=== PATIENT | female | born 1980 | race Two or more races ===

== ENCOUNTER 2018-06-27 09:41 | Outpatient (CLI) | payer OTHER | END 2018-06-27 09:42 | disposition home or self-care (01) | LOC: SC 09:41 | PROVIDERS: ATTEND Internal Medicine Pulmonary Disease | DX: R06.81 Apnea, not elsewhere classified (principal); G47.10 Hypersomnia, unspecified; G47.8 Other sleep disorders; R06.83 Snoring | CPT/HCPCS: 99203; 99212 ==

== ENCOUNTER 2018-07-04 20:36 | Outpatient (CLI) | payer OTHER | END 2018-07-04 20:37 | disposition home or self-care (01) | LOC: SC 20:36 | PROVIDERS: ATTEND Internal Medicine Pulmonary Disease | DX: Z53.9 Procedure and treatment not carried out, unspecified reason (principal) ==

== ENCOUNTER 2018-07-06 10:34 | Outpatient (CLI) | payer OTHER | END 2018-07-06 10:35 | disposition home or self-care (01) | LOC: SC 10:34 | PROVIDERS: ATTEND Internal Medicine Pulmonary Disease | DX: G47.61 Periodic limb movement disorder (principal) | CPT/HCPCS: 95810 ==

== ENCOUNTER 2018-08-24 12:47 | Outpatient (CLI) | payer OTHER | END 2018-08-24 12:48 | disposition home or self-care (01) | LOC: SC 12:47 | PROVIDERS: ATTEND Nurse Practitioner Family | DX: G47.61 Periodic limb movement disorder (principal); R53.83 Other fatigue; I95.9 Hypotension, unspecified; R06.83 Snoring | CPT/HCPCS: 99212; 99214 ==

== ENCOUNTER 2022-07-29 09:15 | Outpatient (CLI) | payer OTHER | END 2022-07-29 09:30 | disposition home or self-care (01) | LOC: LAB.N 09:15 | PROVIDERS: ATTEND Nurse Practitioner | DX: N39.0 Urinary tract infection, site not specified (principal) | CPT/HCPCS: 87086 ==

== ENCOUNTER 2023-05-18 08:00 | Outpatient (CLI) | payer OTHER ==
[2023-05-18 22:26] LABS: BACTERIAL VAGINOSIS DNA NEGATIVE (NEGATIVE); CANDIDA GLABRATA DNA NEGATIVE (NEGATIVE); CANDIDA GROUP DNA NEGATIVE (NEGATIVE); CANDIDA KRUSEI DNA NEGATIVE (NEGATIVE); TRICHOMONAS VAGINALIS DNA NEGATIVE (NEGATIVE)
== END 2023-05-18 23:59 | disposition home or self-care (01) ==
LOC: LAB.WC 08:00
PROVIDERS: ATTEND Nurse Practitioner
DX: N89.8 Other specified noninflammatory disorders of vagina (principal); R63.5 Abnormal weight gain
CPT/HCPCS: 36415; 81514; 81599; 84436; 84443; 84480; 87109

== ENCOUNTER 2023-05-18 15:45 | Outpatient (CLI) | payer OTHER ==
[2023-05-18 16:41] LABS: THYROID STIMULATING HORMONE 2.63 uIU/mL (0.34-5.60)
== END 2023-05-18 15:46 | disposition home or self-care (01) ==
LOC: LAB 15:45 → MERGE 15:45 → LAB 15:46
PROVIDERS: ATTEND Nurse Practitioner
DX: R63.5 Abnormal weight gain (principal)
CPT/HCPCS: 36415; 84436; 84443; 84480

== ENCOUNTER 2023-06-25 14:54 | Outpatient (CLI) | payer OTHER ==
--- NOTE | 2023-07-05 09:23 | Mammography Report ---
BILATERAL DIGITAL SCREENING MAMMOGRAM 3D/2D: 06/25/2023 CLINICAL: Routine screening. No prior exams were available for comparison. Both breasts are heterogeneously dense, which may obscure small masses (category c / 51-75% glandular tissue). There is a possible focal asymmetry in the left breast at 1 o'clock middle depth. No other significant masses, calcifications, or other findings are seen in either breast. IMPRESSION: INCOMPLETE: NEEDS ADDITIONAL IMAGING EVALUATION The possible focal asymmetry in the left breast resembles fibroglandular tissue and is indeterminate. Additional views with possible ultrasound are recommended. Based on the Tyrer Cuzick model (a risk assessment model) the patient's lifetime risk is 15.3% and he r 10 year risk is 2.1%. According to the ACR, ACS, and NCCN guidelines, an annual breast MRI exam timi ng with mammogram is recommended if the patients lifetime risk is 20% or greater. This exam was interpreted at Station ID: [id number]. NOTE: For mammograms, a report in lay terms will be sent to the patient. Approximately 15% of breast malignancies will not be visualized mammographically. In the management of a palpable breast mass, a negative mammogram must not discourage biopsy of a clinically suspicious lesion. Electronically Signed By: Sharif Booth M.D. aty/:07/03/2023 08:49:48 ACR BI-RADS Category 0: Incomplete 3340F PARENCHYMAL PATTERN: (D) - The breast(s) demonstrate(s) heterogeneously dense fibroglandular parenchy ma. BI-RADS CATEGORY: (0) - 0 Mammo and US [id number] Immediate follow-up LATERALITY: (L)
== END 2023-06-25 14:55 | disposition home or self-care (01) ==
LOC: DI 14:54
PROVIDERS: ATTEND Nurse Practitioner
DX: Z12.31 Encounter for screening mammogram for malignant neoplasm of breast (principal); R92.333 Mammographic heterogeneous density, bilateral breasts; R92.8 Other abnormal and inconclusive findings on diagnostic imaging of breast

== ENCOUNTER 2023-07-22 12:32 | Outpatient (CLI) | payer OTHER ==
--- NOTE | 2023-07-23 09:13 | Ultrasound Report ---
LIMITED ULTRASOUND OF LEFT BREAST: 07/22/2023 CLINICAL: Patient returns today to evaluate a focal asymmetry in the left breast. Comparison is made to exams dated: 07/22/2023 mammogram, 06/25/2023 mammogram - [facility], 10/09/2021 mammogram, and 10/09/2021 ultrasound - [facility]. Color flow and real-time ultrasound of the left breast 1 o'clock region were performed. Rodriguez scale images of the real-time examination were reviewed. There is a benign cluster of 3 mm to 5 mm oval cysts in the left breast superior lateral quadrant mid dle depth. These correlate with mammography findings. IMPRESSION: BENIGN There is no sonographic evidence of malignancy. The cluster of 3 mm to 5 mm oval cysts in the left breast is benign. Return to annual mammogram screening schedule is recommended. This exam was interpreted at Station ID: [id number]. Electronically Signed By: Omero Andre M.D. lc/:07/22/2023 14:06:38 letter sent: No_Letter Ultrasound BI-RADS: 2 Benign BI-RADS CATEGORY: (2) - 2 Mammogram [id number] return to screening LATERALITY: (B)
--- NOTE | 2023-07-23 09:13 | Mammography Report ---
UNILATERAL LEFT DIGITAL DIAGNOSTIC MAMMOGRAM 3D/2D WITH LATEROMEDIAL SPOT COMPRESSION: 07/22/2023 CLINICAL: Patient returns today to evaluate a focal asymmetry in the left breast. Comparison is made to exams dated: 06/25/2023 mammogram - [facility] and 10/09/2021 m ammogram - [facility]. The left breast is heterogeneously dense, which may obscure small masses (category c / 51-75% glandul ar tissue). There is a cluster of oval focal asymmetries in the left breast at 1 o'clock middle depth. No other significant masses or calcifications are seen in the breast. IMPRESSION: INCOMPLETE: NEEDS ADDITIONAL IMAGING EVALUATION The cluster of oval focal asymmetries in the left breast is indeterminate. An ultrasound is recommen ded. Based on the Tyrer Cuzick model (a risk assessment model) the patient's lifetime risk is 15.8% and he r 10 year risk is 2.2%. According to the ACR, ACS, and NCCN guidelines, an annual breast MRI exam timi ng with mammogram is recommended if the patient's lifetime risk is 20% or greater. This exam was interpreted at Station ID: [id number]. NOTE: For mammograms, a report in lay terms will be sent to the patient. Approximately 15% of breast malignancies will not be visualized mammographically. In the management of a palpable breast mass, a negative mammogram must not discourage biopsy of a clinically suspicious lesion. Electronically Signed By: Omero Andre M.D. lc/:07/22/2023 14:03:52 ACR BI-RADS Category 0: Incomplete 3340F PARENCHYMAL PATTERN: (D) - The breast(s) demonstrate(s) heterogeneously dense fibroglandular pariday ma. BI-RADS CATEGORY: (0) - 0 Ultrasound [id number] Immediate follow-up LATERALITY: (B)
== END 2023-07-22 12:33 | disposition home or self-care (01) ==
LOC: DI 12:32
PROVIDERS: ATTEND Nurse Practitioner
DX: N60.12 Diffuse cystic mastopathy of left breast (principal); R92.332 Mammographic heterogeneous density, left breast

== ENCOUNTER 2023-08-31 08:22 | Emergency (ER) | payer OTHER ==
--- NOTE | 2023-08-31 08:57 | ED Physician Documentation ---
PD HPI BACK PAIN - Stated complaint Stated Complaint: LOWER BACK PX - Chief complaint Chief Complaint: Back Pain - History obtained from History obtained from: Patient - History of Present Illness Timing - onset: Yesterday Timing - details: Abrupt onset, Still present, Waxing and waning Location: Lower, Left Quality: Pain, Spasm Worsened by: Movement, Palpation. No: Lifting Contributing factors: Lifting, Twisting Similar symptoms before: Diagnosis (has had periodic back pain episodes the past 6 years after the first of her son, when she had some back pain develop end of and has been infrequently recurring problem.) Review of Systems Constitutional: denies: Fever, Chills GI: denies: Abdominal Pain : denies: Dysuria Skin: denies: Rash, Lesions Neurologic: denies: Focal weakness, Numbness PD PAST MEDICAL HISTORY - Past Medical History Past Medical History: No - Past Surgical History Past Surgical History: Yes /TRAINING ASSOCIATE: section HEENT: Tonsil/Adenoidectomy - Present Medications Home Medications: Ambulatory Orders Medication Instructions Recorded Confirmed Gabapentin [Neurontin] 200 mg PO ONCE PRN 08/31/23 08/31/23 HYDROcod/ACETAM 5/325 [Ogden 5/325] 1 ea PO Q6H PRN #14 tablet 08/31/23 Lidocaine Patch 5% [Lidoderm Patch] 1 patch TOP DAILY PRN #10 patch 08/31/23 Meloxicam [Mobic] 7.5 mg PO BID 10 Days #20 tablet 08/31/23 Sertraline HCl 100 mg PO DAILY 08/31/23 08/31/23 methocarbamoL [Robaxin] 500 mg PO Q6H PRN #30 tablet 08/31/23 - Allergies Allergies/Adverse Reactions: Allergies Allergy/AdvReac Type Severity Reaction Status Date / Time metoclopramide [From Reglan] Allergy Cramps Verified 08/31/23 08:41 codeine AdvReac Emesis Verified 08/31/23 08:40 Sulfa (Sulfonamide AdvReac Emesis Verified 08/31/23 08:40 Antibiotics) - Social History Does the pt smoke?: No Smoking Status: Never smoker Does the pt drink ETOH?: No Does the pt have substance abuse?: No - Immunizations Immunizations are current?: Yes - POLST Patient has POLST: No PD ED PE NORMAL - Vitals Vital signs reviewed: Yes - General General: Alert and oriented X 3, Well developed/nourished, Other (appears guarded for ROM of the low back. Otherwise not in distress. ) - Abdomen Abdomen: Soft, Non tender - Back Back: No CVA TTP, No spinal TTP, Other (tender in the lumbar soft tissue level left side. No focal trigger point per se. No rash nor sores. ) - Derm Derm: Normal color, Warm and dry, No rash - Neuro Neuro: Alert and oriented X 3, No motor deficit, No sensory deficit, Normal speech, Other (normal knee reflexes. ) Results - Vitals Vitals: Oxygen O2 Source Room air PD Medical Decision Making - ED course Complexity details: considered differential (lower muscular back pain without red flags. Can treat with usual combination NSAIDs, muscle relaxants, pain meds and physical modalities. ), d/w patient Departure - Departure Disposition: 01 Home, Self Care Clinical Impression: Acute back pain Condition: Stable Record reviewed to determine appropriate education?: Yes Instructions: ED Spasm Back No Trauma Follow-Up: [facility] [Provider Group] Prescriptions: Lidocaine Patch 5% [Lidoderm Patch] 1 patch TOP DAILY PRN #10 patch PRN Reason: pain Meloxicam [Mobic] 7.5 mg PO BID 10 Days #20 tablet HYDROcod/ACETAM 5/325 [Ogden 5/325] 1 ea PO Q6H PRN #14 tablet PRN Reason: Pain methocarbamoL [Robaxin] 500 mg PO Q6H PRN #30 tablet PRN Reason: Spasms Comments: You can try heat and/or ice and see which 1 makes it feel better. This will depend on how much is spasm versus inflammation and sometimes alternating the tube can be useful as well. Physical modalities such as massage, stretching chiropractic can be useful. Continue your physical therapy. We can use a combination of some longer acting in a inflammatory similar to ibuprofen but he would only need to take it twice a day for the next week or so. Still take it with food. Robaxin muscle relaxant to use for spasm and stiffness. You can try topically a lidocaine patch over the area as well. I find these useful at times as an adjunct. Add Tylenol 500 to 650 mg 4 times daily for pain also if needed. Activity as tolerated. Add hydrocodone/acetaminophen every 6-8 hours if needed for worse pain in the short-term. I sent prescriptions to [facility] pharmacy in [place]. Follow-up with your primary care or return to the ER if not improving well over the next several days or more frequent recurrent episodes. If you are having more episodes and to have been through physical therapy, your primary care may consider imaging to see if there is more to it aside from your scoliosis. It sounds like your provider is going along the usual preferred and recommended pathways of medication and physical therapy first. I am prescribing a short course of narcotic pain medication for you. These are potentially dangerous and addictive medications that should be used carefully. These medications may constipate you. Take an ryee-dgl-jrnihah stool softener such as docusate twice daily with plenty of water while taking these medications. If you go 24 hours without a bowel movement, take tnls-btr-[id number] MiraLAX, per package instructions. Do not drink or drive while taking these medications. If you received narcotic or sedating medications while in the emergency department do not drive for 24 hours. Store this medication in a safe, secure place and out of reach of children. It is a violation of federal law to give or sell this medication to another person or to use in a manner other than prescribed. The ED will not refill narcotic prescriptions, including prescriptions lost or stolen. You can dispose of unwanted medications at the [facility] office or at several pharmacies such as [facility]. Forms: Activity restrictions Discharge Date/Time: 08/31/23 10:21
[2023-08-31] MEDS: methocarbamoL 500 MG TABLET PO STA (10:06)
[2023-08-31] MEDS: KETOROLAC 30 MG/ML VIAL IM STA (10:07)
[2023-08-31] MEDS: LIDOCAINE PATCH 5% TOP STA (10:10)
[2023-08-31 10:19] VITALS: BP 115/83; O2SAT 99
== END 2023-08-31 10:21 | disposition home or self-care (01) ==
LOC: ED 08:22
DX: M54.50 Low back pain, unspecified (principal)
CPT/HCPCS: 96372; 99283; A9270

== ENCOUNTER 2023-09-22 12:01 | Outpatient (CLI) | payer OTHER ==
--- NOTE | 2023-09-22 16:14 | XRAY Report ---
PROCEDURE: Pelvis 1-2V INDICATIONS: PELVIC PAIN TECHNIQUE: 1 view(s) of the pelvis acquired. COMPARISON: None. FINDINGS: Bones: No fractures or dislocations. No suspicious bony lesions. Soft tissues: Visualized bowel gas pattern is normal. No suspicious soft tissue calcifications. M oderate colonic stool. IMPRESSION: No acute bony abnormality. Reviewed by: Luh Sy MD on 09/22/2023 4:12 PM PDT Approved by: Luh Sy MD on 09/22/2023 4:12 PM PDT Station ID: [id number]
--- NOTE | 2023-09-22 16:15 | XRAY Report ---
PROCEDURE: Lumbar Spine 2-3V INDICATIONS: PELVIC PAIN TECHNIQUE: 3 views of the lumbar spine were acquired. COMPARISON: None. FINDINGS: Bones: 5 gbo-jlo-pgodhkk vertebrae are present. There is trace retrolisthesis of L1 on L2, L2-L3, L 3 on L4. Moderate to severe disc and mild foraminal narrowing are present L5-S1. No vertebral body co mpression fractures. No suspicious bony lesions. Soft tissues: Overlying bowel gas pattern is normal. No suspicious soft tissue calcifications. IMPRESSION: Early degenerative changes most prominent at L5-S1. Reviewed by: Luh Sy MD on 09/22/2023 4:14 PM PDT Approved by: Luh Sy MD on 09/22/2023 4:14 PM PDT Station ID: [id number]
== END 2023-09-22 12:02 | disposition home or self-care (01) ==
LOC: DI 12:01
PROVIDERS: ATTEND Nurse Practitioner
DX: R10.2 Pelvic and perineal pain (principal); M47.817 Spondylosis without myelopathy or radiculopathy, lumbosacral region

== ENCOUNTER 2023-10-11 07:03 | Outpatient (CLI) | payer OTHER ==
[~2023-10-11 07:03] MED LIST: GADOTERATE MEGLUMINE 7.5 MMOL/15 ML VIAL ONE
--- NOTE | 2023-10-11 09:53 | MRI Report ---
PROCEDURE: Lumbar Spine W/WO INDICATIONS: PELVIC PAIN, STRESS INCONTINENCE CONTRAST: Clariscan 13.4ml TECHNIQUE: Noncontrast sagittal T1 spin echo and T2 fast spin echo, sagittal STIR, axial T1 and T2 fast spin ech o through the lumbar spine. In cases with scoliosis, additional coronal T2 fast spin echo may be per formed. After the administration of contrast, sagittal and axial T1 spin echo with fat saturation th rough the lumbar spine. COMPARISON: Lumbar spine plain films dated 09/22/2023. FINDINGS: Image quality: Excellent. Alignment and curvature: There is normal bony alignment. Marrow: Marrow is of normal overall signal. No acute vertebral body compression fractures. No susp icious marrow enhancement. Spinal cord: Conus medullaris terminates at the L1-L2 level. Visualized spinal cord demonstrates no rmal signal, without suspicious enhancement. Paraspinous soft tissues: No paravertebral masses or abnormal enhancement. T12-L1: Normal in appearance. L1-L2: Normal in appearance. L2-L3: Normal in appearance. L3-L4: Early facet hypertrophy. No canal stenosis or foraminal stenosis. L4-L5: Early facet hypertrophy. No canal stenosis or foraminal stenosis. L5-S1: There is a mild broad-based right paracentral disc protrusion with posterior displacement an d a degree of impingement on the right S1 nerve root in the right lateral recess. There is no centra l canal stenosis. There is early facet hypertrophy. There is no significant foraminal stenosis. IMPRESSION: 1. There is early underlying multilevel facet arthropathy. 2. At L5-S1, there is a mild broad-based right paracentral disc protrusion which results in a degree of impingement on the right S1 nerve root in the right lateral recess. Recommend correlation for pres ence or absence of right sciatica. Reviewed by: Armando Emanuel MD on 10/11/2023 9:52 AM PDT Approved by: Armando Emanuel MD on 10/11/2023 9:52 AM PDT Station ID: [id number]
--- NOTE | 2023-10-11 16:29 | MRI Report ---
PROCEDURE: Pelvis W/WO INDICATIONS: PELVIC PAIN, STRESS INCONTINENCE CONTRAST: Clariscan 13.4ml TECHNIQUE: Coronal ultra fast SE, sagittal breath-hold T2 FSE; axial T1 FSE with and without fat saturation thro ugh the pelvis. Optional long- and short-axis uterine nonbreath-hold T2 FSE through the uterus. Sag ittal or axial dynamic ultra fast GE during administration of contrast. Post-contrast axial or coron al ultra fast GE / 2-D spoiled GE with fat saturation from the iliac crests to the symphysis. Option al diffusion weighted imaging and ADC may be performed. COMPARISON: None. FINDINGS: Image quality: Excellent. Uterus: Uterus is normal in size measuring 8.7 cm. Endometrium is normal in thickness measuring 3 m m. Junctional zone is normal in thickness at 12 mm or less. Prior section scar. Adnexa: Both ovaries are normal in size, without suspicious cystic or solid lesions. Urinary system: Bladder wall is normal in thickness. Distal ureters are non distended. Urethra shaneka ears normal in morphology. Nodes and vessels: No pelvic or inguinal adenopathy by size criteria. Iliac vessels are normal in s ize. Bowel and peritoneum: No pathologic free pelvic fluid. Inferior colon and small bowel loops are nor mal in caliber. Soft tissues: No inguinal hernias. No findings of pelvic floor incompetence in the absence of provoc ation. Bones: Marrow demonstrates normal overall signal. IMPRESSION: No significant ovarian cysts. No free fluid. No endometrial thickening. Reviewed by: Duncan Garza MD on 10/11/2023 4:28 PM PDT Approved by: Duncan Garza MD on 10/11/2023 4:28 PM PDT Station ID: [id number]
[2023-10-11] MEDS: GADOTERATE MEGLUMINE 7.5 MMOL/15 ML VIAL IVP ONE (18:54)
== END 2023-10-11 07:04 | disposition home or self-care (01) ==
LOC: DI 07:03
PROVIDERS: ATTEND Nurse Practitioner
DX: M47.816 Spondylosis without myelopathy or radiculopathy, lumbar region (principal); M51.17 Intervertebral disc disorders with radiculopathy, lumbosacral region; M47.817 Spondylosis without myelopathy or radiculopathy, lumbosacral region; M48.07 Spinal stenosis, lumbosacral region; R10.2 Pelvic and perineal pain; N39.3 Stress incontinence (female) (male)